=== PATIENT | male | born 1980 | race Caucasian/White ===

== ENCOUNTER 2017-10-21 09:44 | Emergency (ER) | payer SELFPAY ==
--- NOTE | 2017-10-21 11:29 | ED ---
Throat Pain/Nasal Congestion - HPI Summary HPI Summary: Patient presents to the ED with CC of sore throat, abdominal pain with cough, cough worse at night, and loss of voice. Denies other symptoms. Denies fevers , sweats or chills. Denies chest pain or pressure, SOB, back pain, weakness or other feelings of ill. Denies sick contacts. Hx of hyperthyroidism, but does not take medication or follow up with a PCP. Denies other health history. - History of Current Complaint Chief Complaint: EDThroatPain Time Seen by Provider: 10/21/17 10:02 Hx Obtained From: Patient Onset/Duration: Sudden Onset Severity: Moderate Cough: Nonproductive - Epiglottits Risk Factors Epiglottis Risk Factors: Negative, Muffled Voice - Allergies/Home Medications Allergies/Adverse Reactions: Allergies Allergy/AdvReac Type Severity Reaction Status Date / Time Shellfish Allergy Allergy Anaphylatic Verified 10/01/17 01:24 Shock PMH/Surg Hx/FS Hx/Imm Hx Previously Healthy: Yes Psychiatric History: Reports: Hx Substance Abuse - etoh, pills - Immunization History Date of Tetanus Vaccine: UP TO DATE Date of Influenza Vaccine: UNKNOWN Infectious Disease History: No Infectious Disease History: Denies: Traveled Outside the [place] in Last 30 Days - Family History Known Family History: Negative: Cardiac Disease, Hypertension, Diabetes - Social History Occupation: Employed Full-time Lives: With Family Alcohol Use: Occasionally Hx Substance Use: No Substance Use Type: Reports: None Hx Tobacco Use: Yes Smoking Status (MU): Heavy Every Day Tobacco Smoker Review of Systems Constitutional: Negative Negative: Fever, Chills, Fatigue Eyes: Negative Positive: Sore Throat Cardiovascular: Negative Positive: Cough Positive: Abdominal Pain Genitourinary: Negative Positive: no symptoms reported, see HPI Neurological: Negative Psychological: Normal All Other Systems Reviewed And Are Negative: Yes Physical Exam Triage Information Reviewed: Yes Vital Signs On Initial Exam: Initial Vitals Temp Pulse Resp BP Pulse Ox 98.1 F 100 16 142/89 96 10/21/17 09:46 10/21/17 09:46 10/21/17 09:46 10/21/17 09:46 10/21/17 09:46 Vital Signs Reviewed: Yes Appearance: Positive: Well-Appearing, Well-Nourished Skin: Positive: Warm, Skin Color Reflects Adequate Perfusion Head/Face: Positive: Normal Head/Face Inspection Eyes: Positive: EOMI, ARABELLA, Conjunctiva Clear ENT: Positive: Pharynx normal, Muffled voice, Hoarse voice, Uvula midline. Negative: Pharyngeal erythema, Nasal congestion, TM bulging, TM dull, TM red, Tonsillar swelling, Tonsillar exudate Neck: Positive: Supple, Nontender, No Lymphadenopathy Respiratory/Lung Sounds: Positive: Breath Sounds Present Cardiovascular: Positive: Normal, RRR, Pulses are Symmetrical in both Upper and Lower Extremities Musculoskeletal: Positive: Strength/ROM Intact Neurological: Positive: Speech Normal Psychiatric: Positive: Normal AVPU Assessment: Alert - Ailyn Coma Scale Best Eye Response: 4 - Spontaneous Best Motor Response: 6 - Obeys Commands Best Verbal Response: 5 - Oriented Diagnostics - Vital Signs Vital Signs Temp Pulse Resp BP Pulse Ox 10/21/17 09:46 98.1 F 100 16 142/89 96 - Laboratory Lab Results: Lab Results 10/21/17 Range/Units 10:18 Group A Strep Rapid Negative (Negative) Lab Statement: Any lab studies that have been ordered have been reviewed, and results considered in the medical decision making process. EENT Course/Dx - Course Course Of Treatment: Patient is evaluated for loss of voice, sore throat, abdominal pain with coughing x 2 days. Denies fevers, sweats or chills. Otherwise healthy. No pharyngeal erythema or tonsillar swelling. Lungs CTA. Given Prednisone x 5 days and robitussin with codeine. He is OK for discharge and will return for any worsening symptoms. - Differential Diagnoses Differential Diagnoses: URI/Bronchitis - Diagnoses Provider Diagnoses: Laryngitis Discharge - Discharge Plan Condition: Stable Disposition: HOME Prescriptions: Guaifenesin-Codeine [Codeine/Guaifenesin 100-10 mg/5Ml] 5 ml PO Q4H #150 ml MDD 30 predniSONE TAB* [Deltasone TAB*] 50 mg PO DAILY #5 tab MDD 1 Patient Education Materials: Laryngitis (ED) Referrals: No Primary Care Phys,NOPCP [Primary Care Provider] - Additional Instructions: Prednisone 50mg daily in the MORNING - Take first dose now Robitussin with codeine- Take 1 teaspoon every 4 hours. Can take 2 teaspoon before bed. Follow up with your PCP regarding your thyroid Lemon, Hot Tea, Honey Try to avoid using the voice.
[2017-10-21 11:33] VITALS: BP 127/86
== END 2017-10-21 11:32 | disposition home or self-care (01) ==
LOC: ED 09:44
DX: J04.0 Acute laryngitis (principal); R05 Cough; F17.210 Nicotine dependence, cigarettes, uncomplicated
CPT/HCPCS: 87651; 99282

== ENCOUNTER 2018-06-15 10:45 | Emergency (ER) | payer SELFPAY ==
--- NOTE | 2018-06-15 12:53 | ED ---
Respiratory - HPI Summary HPI Summary: Patient is a 38-year-old male who presents emergency department for evaluation of a cough and nasal congestion 3 days. Patient states he is a daily smoker. He otherwise denies past medical history. Patient also notes abdominal pain from coughing. He denies vomiting, diarrhea, constipation, fever, chills. Symptoms are mild in severity. - History of Current Complaint Chief Complaint: EDGeneral Stated Complaint: COUGH/ABD PAIN/BACK PAIN Time Seen by Provider: 06/15/18 12:30 Hx Obtained From: Patient Pain Intensity: 0 - Allergy/Home Medications Allergies/Adverse Reactions: Allergies Allergy/AdvReac Type Severity Reaction Status Date / Time bee venom protein (honey bee) Allergy Swelling Verified 06/15/18 12:56 Of Face,Lips,& Throat shellfish derived Allergy Anaphylatic Verified 06/15/18 12:56 Shock PMH/Surg Hx/FS Hx/Imm Hx Psychiatric History: Reports: Hx Substance Abuse - etoh, pills - Immunization History Date of Tetanus Vaccine: UP TO DATE Date of Influenza Vaccine: UNKNOWN Infectious Disease History: No Infectious Disease History: Denies: Traveled Outside the [place] in Last 30 Days - Family History Known Family History: Negative: Cardiac Disease, Hypertension, Diabetes - Social History Occupation: Employed Full-time Lives: Alone Alcohol Use: Occasionally Hx Substance Use: No Substance Use Type: Reports: None Hx Tobacco Use: Yes Smoking Status (MU): Heavy Every Day Tobacco Smoker Review of Systems Constitutional: Negative Eyes: Negative Positive: Nasal Discharge Cardiovascular: Negative Positive: Cough. Negative: Shortness Of Breath Positive: Abdominal Pain. Negative: Vomiting, Diarrhea, Nausea Neurological: Negative All Other Systems Reviewed And Are Negative: Yes Physical Exam Triage Information Reviewed: Yes Vital Signs On Initial Exam: Initial Vitals Temp Pulse Resp BP Pulse Ox 98.1 F 90 18 155/101 96 06/15/18 10:49 06/15/18 10:49 06/15/18 10:49 06/15/18 10:49 06/15/18 10:49 Vital Signs Reviewed: Yes Appearance: Positive: Well-Appearing - Patient sitting in chair in no acute distress. Skin: Positive: Warm, Dry Head/Face: Positive: Normal Head/Face Inspection Eyes: Positive: Normal ENT: Positive: Normal ENT inspection, Pharynx normal, Nasal congestion, TMs normal. Negative: Pharyngeal erythema, Tonsillar swelling, Tonsillar exudate Neck: Positive: Supple Respiratory/Lung Sounds: Positive: Other - Very mild expiratory wheeze in the bases, lungs otherwise clear throughout. Cardiovascular: Positive: Normal, RRR Abdomen Description: Positive: Nontender, Soft Neurological: Positive: Normal, CN Intact II-III Psychiatric: Positive: Affect/Mood Appropriate Diagnostics - Vital Signs Vital Signs Temp Pulse Resp BP Pulse Ox 06/15/18 10:49 98.1 F 90 18 155/101 96 - Laboratory Lab Statement: Any lab studies that have been ordered have been reviewed, and results considered in the medical decision making process. Disposition - Course Course Of Treatment: Patient presenting for evaluation of cough, nasal congestion and abdominal pain. He has benign abdominal exam pain is and movement. Oxygen saturations 96% room air. Blood pressure initially elevated. Suspect viral etiology. Advised Tylenol or Motrin for pain as dircted. To increase fluids and rest. Advised pt. if abd. pain worsens, fever, vomiting he may need further testing. Pt. states he does have an inhaler at home he can used. Advised 2puffs every 4-6 hours as needed. Pt. understands and agrees with plan. - Differential Dx - Cardiopulmonary Differential Diagnoses - Cardiopulmonary: Bronchitis, Influenza, Lower Resp Infection, Sinusitis - Diagnoses Provider Diagnoses: URI, acute Discharge - Sign-Out/Discharge Documenting (check all that apply): Patient Departure - Discharge Plan Condition: Good Disposition: HOME Patient Education Materials: Muscle Strain (ED), Upper Respiratory Infection ( ED) Referrals: [facility] [[place]] No Primary Care Phys,NOPCP [Primary Care Provider] - Additional Instructions: [place] [facility] [place] to establish a PCP Increase fluids and rest Use your inhaler at home as directed: 2 puffs every 4-6 hours as needed Tylenol or Motrin for pain as directed Return to ER if symptoms change or worsen - Billing Disposition and Condition Condition: GOOD Disposition: Home
[2018-06-15 13:13] VITALS: BP 135/89
== END 2018-06-15 13:12 | disposition home or self-care (01) ==
LOC: ED 10:45
DX: J06.9 Acute upper respiratory infection, unspecified (principal); R10.9 Unspecified abdominal pain; F17.200 Nicotine dependence, unspecified, uncomplicated
CPT/HCPCS: 99282

== ENCOUNTER 2018-07-22 16:41 | Emergency (ER) | payer SELFPAY ==
[2018-07-22 17:11] LABS: ABS Basophils 0.1 10^3/ul (0-0.2); ABS Eosinophils 0.3 10^3/ul (0-0.6); ABS Lymphocytes 1.8 10^3/ul (1.0-4.8); ABS Monocytes 0.5 10^3/ul (0-0.8); ABS Neutrophils 5.3 10^3/ul (1.5-7.7); ABS Nucleated RBC 0 10^3/ul; Eosinophil % 3.6 % (0-6); Hematocrit 40 % (42-52); Hemoglobin 13.7 g/dl (14.0-18.0); Lymphocyte % 22.4 % (25-47); Mean Corpuscular HGB Conc 34 g/dl (31-36); Mean Corpuscular Hemoglobin 31 pg (27-31); Mean Corpuscular Volume 92 fL (80-94); Mean Platelet Volume 7.8 um3 (7.4-10.4); Nucleated Red Blood Cells % 0.1; Platelet Count 255 10^3/ul (150-450); Red Blood Count 4.39 10^6/ul (4.00-5.40); Red Cell Distribution Width 14 % (10.5-15); White Blood Count 7.9 10^3/ul (3.5-10.8)
[2018-07-22 17:27] LABS: EGFR Non-African American 94.4 (>60)
--- NOTE | 2018-07-22 17:41 | RAD ---
INDICATION: Chest pain. COMPARISON: Comparison is made with prior chest x-ray study from March 02, 2015. TECHNIQUE: A portable view of the chest was obtained. FINDINGS: Cardiac and mediastinal contours appear to be within normal limits. The lungs are underinflated. There is more focal elevation of the left hemidiaphragm which appears similar to the prior study. There is a small left basilar infiltrate. No pleural effusion is seen. IMPRESSION: LOW LUNG VOLUMES, SMALL LEFT BASILAR INFILTRATE.
--- NOTE | 2018-07-22 17:51 | ED ---
HPI Chest Pain - HPI Summary HPI Summary: 38 y/o male presents to ED c/o constant CP starting at 02:00 this morning. . Pain now radiates to bilateral shoulders. Sx not alleviated by anything. Pain behind L shoulder aggravated with movement of L shoulder, including lifting and rotation of shoulder. FHx cardiac disease - father. Pt has no prior MN's. Smoker - half a pack a day. - History of Current Complaint Chief Complaint: EDChestPainROMI Hx Obtained From: Patient Onset/Duration: Started Hours Ago, Still Present Timing: Constant Pain Intensity: 8 Pain Scale Used: 0-10 Numeric Chest Pain Location: Mid Sternal Chest Pain Radiates: Yes Chest Pain Radiates To:: Shoulder - bilateral Aggravating Factor(s): Movement - L scapula pain aggravated with movement Alleviating Factor(s): Nothing Associated Signs and Symptoms: Positive: Chest Pain - Allergy/Home Medications Allergies/Adverse Reactions: Allergies Allergy/AdvReac Type Severity Reaction Status Date / Time bee venom protein (honey bee) Allergy Swelling Verified 07/22/18 16:45 Of Face,Lips,& Throat shellfish derived Allergy Anaphylatic Verified 07/22/18 16:45 Shock PMH/Surg Hx/FS Hx/Imm Hx Previously Healthy: No Cardiovascular History: Denies: Hx Congestive Heart Failure Respiratory History: Denies: Hx Chronic Obstructive Pulmonary Disease (COPD) Psychiatric History: Reports: Hx Substance Abuse - etoh, pills - Immunization History Date of Tetanus Vaccine: UP TO DATE Date of Influenza Vaccine: UNKNOWN Infectious Disease History: No Infectious Disease History: Denies: Traveled Outside the [place] in Last 30 Days - Family History Known Family History: Positive: Cardiac Disease - father Negative: Hypertension, Diabetes - Social History Alcohol Use: Occasionally Hx Substance Use: No Substance Use Type: Reports: None Hx Tobacco Use: Yes Smoking Status (MU): Heavy Every Day Tobacco Smoker Review of Systems Constitutional: Negative Eyes: Negative ENT: Negative Positive: Chest Pain Respiratory: Negative Gastrointestinal: Negative Genitourinary: Negative Musculoskeletal: Negative Skin: Negative Neurological: Negative Psychological: Normal All Other Systems Reviewed And Are Negative: No Physical Exam - Summary Physical Exam Summary: Appearance: Alert, conversive, nontoxic appearing Skin: Warm, dry, no mottling, no rashes, no contusions HEENT: EOMI, PERRL, moist mucous membranes Neck: No masses on the neck, supple Respiratory: Clear to auscultation, breath sounds present, no rales, no rhonchi , no wheezes Cardiovascular: RRR, pulses are symmetrical in both lower and upper extremities Abdomen: Soft, non-tender Bowel Sounds: Present Musculoskeletal: No CVA tenderness, no obvious deformity, moving all extremities in a grossly normal manner. Reproducible pain to scapula. Neurological: A&Ox3, CN II-XII Intact, moving all extremities symmetrically Psychiatric: Normal affect and mood Triage Information Reviewed: Yes Vital Signs On Initial Exam: Initial Vitals Temp Pulse Resp BP Pulse Ox 98.1 F 83 16 143/99 97 07/22/18 16:45 07/22/18 16:45 07/22/18 16:45 07/22/18 16:45 07/22/18 16:45 Vital Signs Reviewed: Yes Diagnostics - Vital Signs Vital Signs Temp Pulse Resp BP Pulse Ox 07/22/18 16:45 98.1 F 83 16 143/99 97 - Laboratory Lab Results: Lab Results 07/22/18 07/22/18 07/22/18 Range/Units 16:57 16:57 16:57 WBC 7.9 (3.5-10.8) 10^3/ul RBC 4.39 (4.00-5.40) 10^6/ul Hgb 13.7 L (14.0-18.0) g/dl Hct 40 L (42-52) % MCV 92 (80-94) fL MCH 31 (27-31) pg MCHC 34 (31-36) g/dl RDW 14 (10.5-15) % Plt Count 255 (150-450) 10^3/ul MPV 7.8 (7.4-10.4) um3 Neut % (Auto) 66.7 (38-83) % Lymph % (Auto) 22.4 L (25-47) % Jewell % (Auto) 6.1 (0-7) % Eos % (Auto) 3.6 (0-6) % Baso % (Auto) 1.2 (0-2) % Absolute Neuts (auto) 5.3 (1.5-7.7) 10^3/ul Absolute Lymphs (auto) 1.8 (1.0-4.8) 10^3/ul Absolute Monos (auto) 0.5 (0-0.8) 10^3/ul Absolute Eos (auto) 0.3 (0-0.6) 10^3/ul Absolute Basos (auto) 0.1 (0-0.2) 10^3/ul Absolute Nucleated RBC 0 10^3/ul Nucleated RBC % 0.1 D-Dimer, Quantitative < 200 (Less Than 230) ng/mL Sodium 137 (135-145) mmol/L Potassium 3.9 (3.5-5.0) mmol/L Chloride 105 (101-111) mmol/L Carbon Dioxide 27 (22-32) mmol/L Anion Gap 5 (2-11) mmol/L BUN 12 (6-24) mg/dL Creatinine 0.90 (0.67-1.17) mg/dL Est GFR ( Amer) 114.3 (>60) Est GFR (Non-Af Amer) 94.4 (>60) BUN/Creatinine Ratio 13.3 (8-20) Glucose 88 (70-100) mg/dL Calcium 9.0 (8.6-10.3) mg/dL Magnesium 2.0 (1.9-2.7) mg/dL Total Bilirubin 0.20 (0.2-1.0) mg/dL AST 22 (13-39) U/L ALT 44 (7-52) U/L Alkaline Phosphatase 85 (34-104) U/L Troponin I 0.00 (<0.04) ng/mL Total Protein 7.0 (6.4-8.9) g/dL Albumin 4.1 (3.2-5.2) g/dL Globulin 2.9 (2-4) g/dL Albumin/Globulin Ratio 1.4 (1-3) Lipase 21 (11.0-82.0) U/L TSH 2.30 (0.34-5.60) mcIU/mL Result Diagrams: 07/22/18 16:57 07/22/18 16:57 Lab Statement: Any lab studies that have been ordered have been reviewed, and results considered in the medical decision making process. - Radiology CXR Radiology Interpretation Completed By: Radiologist - LOW LUNG VOLUMES, SMALL LEFT BASILAR INFILTRATE. ED physician reviews and agrees. - Additional Comments Diagnostic Additional Comments: EKG - 16:49 - SR @ 76 BPM. Normal QRS, QTc, normal axis. Nonspecific intraventricular conduction delay. Chest Pain Course/Dx - Course Assessment/Plan: 38 y/o male presents to ED c/o constant CP starting at 02:00 this morning. Pain behind L shoulder worse with movement of shoulder - lifting and rotation. Labs without significant abnormalities. CXR shows LOW LUNG VOLUMES , SMALL LEFT BASILAR INFILTRATE. EKG shows no acute changes. Pt will be d/c home. - Diagnoses Provider Diagnoses: Musculoskeletal pain, Pneumonia, Chest pain Discharge - Sign-Out/Discharge Documenting (check all that apply): Patient Departure - Discharge Plan Condition: Stable Disposition: HOME Prescriptions: Azithromyxin PAVEL (NF) [Z-Pavel (Zithromax) 250 mg tabs #6] 2 tab PO .TODAY, THEN 1 DAILY #6 tab Cyclobenzaprine TAB* [Flexeril 10 MG TAB*] 10 mg PO TID PRN #15 tab MDD 3 PRN Reason: Pain Patient Education Materials: Chest Pain (ED), Musculoskeletal Pain (ED), Pneumonia (ED) Forms: *Work Release Referrals: No Primary Care Phys,NOPCP [Primary Care Provider] - Additional Instructions: Take the flexeril for muscle strain. return if worse or any new symptoms. It is important to follow up with your primary care physician. Take the azithromycin for your pneumonia. - Billing Disposition and Condition Condition: STABLE Disposition: Home - Attestation Statements Document Initiated by Nitin: Yes Documenting Scribe: Jose Cavanaugh Provider For Whom Nitin is Documenting (Include Credential): Ayesha Means MD Scribe Attestation: Jose Garza, scribed for Ayesha Means MD on 07/22/18 at 1847. Scribe Documentation Reviewed: Yes Provider Attestation: The documentation as recorded by the Jose lubin accurately reflects the service I personally performed and the decisions made by me, Ayesha Means MD
[2018-07-22] MEDS ORDERED: cefTRIAXone VIAL(*) 1,000 MG VIAL IM ONE (18:02)
[2018-07-22] MEDS ORDERED: Azithromycin TAB* 250 MG PO ONE (18:03)
[2018-07-22] MEDS ORDERED: Cyclobenzaprine TAB* 10 MG PO ONE (18:04)
[2018-07-22 18:25] VITALS: BP 135/89
== END 2018-07-22 18:24 | disposition home or self-care (01) ==
LOC: ED 16:41
DX: J18.9 Pneumonia, unspecified organism (principal); R07.89 Other chest pain; M25.512 Pain in left shoulder; M25.511 Pain in right shoulder; Z91.030 Bee allergy status; Z91.013 Allergy to seafood; Z82.49 Family history of ischemic heart disease and other diseases of the circulatory system; F17.200 Nicotine dependence, unspecified, uncomplicated
CPT/HCPCS: 36415; 71045; 80053; 83690; 83735; 84443; 84484; 85025; 85379; 93005; 96372; 99283; A9270-GY; J0696

== ENCOUNTER 2019-12-25 02:57 | Emergency (ER) | payer SELFPAY ==
[2019-12-25 03:41] LABS: ABS Eosinophils 0.2 10^3/ul (0-0.6); ABS Lymphocytes 1.9 10^3/ul (1.0-4.8); ABS Monocytes 0.5 10^3/ul (0-0.8); ABS Neutrophils 6.3 10^3/ul (1.5-7.7); Eosinophil % 2.7 %; Hematocrit 47 % (42-52); Hemoglobin 16.2 g/dL (14.0-18.0); Lymphocyte % 21.2 %; Mean Corpuscular HGB Conc 34 g/dL (31-36); Mean Corpuscular Hemoglobin 32 pg (27-31); Mean Corpuscular Volume 93 fL (80-94); Nucleated Red Blood Cells % 0.1; Platelet Count 299 10^3/uL (150-450); Red Blood Count 5.12 10^6 /uL (4.18-5.48); Red Cell Distribution Width 14 % (10-15); White Blood Count 8.9 10^3/uL (3.5-10.8)
[2019-12-25 03:56] LABS: ALT 69 U/L (7-52); AST 36 U/L (13-39); Albumin 4.7 g/dL (3.2-5.2); Albumin/Globulin Ratio 1.4 (1-3); Alkaline Phosphatase 84 U/L (34-104); Anion Gap 9 mmol/L (2-11); BUN/Creatinine Ratio 15.9 (8-20); Blood Urea Nitrogen 14 mg/dL (6-24); CO2 Carbon Dioxide 24 mmol/L (22-32); Calcium 9.6 mg/dL (8.6-10.3); Chloride 106 mmol/L (101-111); EGFR African American 116.7 (>60); EGFR Non-African American 96.4 (>60); Globulin 3.3 g/dL (2-4); Glucose 116 mg/dL (70-100); Potassium 3.6 mmol/L (3.5-5.0); Sodium 139 mmol/L (135-145)
[2019-12-25] MEDS ORDERED: Ondansetron ODT TAB* 4 MG SL PRN (03:59)
[2019-12-25 04:11] LABS: Urine Appearance Clear; Urine Bilirubin Negative (Negative); Urine Blood 1+ (Negative); Urine Color Straw; Urine Glucose Negative (Negative); Urine Ketones Negative (Negative); Urine Nitrite Negative (Negative); Urine Protein Negative (Negative); Urine Specific Gravity 1.002 (1.010-1.030); Urine Urobilinogen Negative (Negative)
[2019-12-25 04:14] LABS: Urine Bacteria Absent (Absent); Urine Red Blood Cell Absent (Absent); Urine White Blood Cell Absent (Absent)
[2019-12-25 04:20] LABS: Acetaminophen < 15 mcg/mL; Alcohol 333 mg/dL (<10); Salicylate < 2.50 mg/dL (<30)
[2019-12-25 04:30] LABS: Urine Benzodiazepine Screen None Detected (None Detect); Urine Opiates Screen None Detected (None Detect)
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
[2019-12-25 09:09] VITALS: BP 130/98
== END 2019-12-25 09:08 | disposition home or self-care (01) ==
LOC: ED 02:57
DX: F10.129 Alcohol abuse with intoxication, unspecified (principal); Y90.8 Blood alcohol level of 240 mg/100 ml or more; Z91.030 Bee allergy status; Z91.013 Allergy to seafood; F17.200 Nicotine dependence, unspecified, uncomplicated
CPT/HCPCS: 36415; 80053; 80307; 80320; 80329; 81003; 81015; 83605; 85025; 99283; G0480